=== PATIENT | female | born 1960 | race Caucasian/White ===

== ENCOUNTER 2018-08-08 08:03 | Day surgery (SDC) | payer BC ==
[~2018-08-08] VITALS: Ht 170.2 cm; Wt 70.7 kg
[~2018-08-08 08:03] MED LIST: NO MEDS
[2018-08-08 08:45] VITALS: Ht 170.2 cm; Wt 70.7 kg
[2018-08-08 09:05] VITALS: BP 121/78; PULSE 60; RESP 16
[2018-08-08 09:30] VITALS: BP 101/60; PULSE 67; RESP 15
[2018-08-08 09:45] VITALS: BP 113/57; PULSE 61; RESP 16
[2018-08-08 10:00] VITALS: BP 117/59; PULSE 58; RESP 18
[2018-08-08] MEDS ORDERED: FENTAnyl 50 MCG/ML VIAL ONE (10:11)
== END 2018-08-08 16:11 | disposition home or self-care (01) ==
LOC: GIL 08:03
PROVIDERS: ATTEND Internal Medicine Gastroenterology
DX: Z12.11 Encounter for screening for malignant neoplasm of colon (principal); K64.4 Residual hemorrhoidal skin tags
CPT/HCPCS: 45378; J3010